=== PATIENT | male | born 1975 | race Caucasian/White ===

== ENCOUNTER 2023-10-28 02:16 | Inpatient (IN) | payer OTHER ==
[2023-10-28 02:39] LABS: #Eosinphils 0.1 thou/uL (0.0-0.7); #Monocytes 1.2 thou/uL (0.11-0.59); #Neutrophils 15.2 thou/uL (1.40-6.50); %Basophils 0.2 % (0.0-1.0); %Eosinophils 0.6 % (0.0-10.0); %Lymphocytes 7.4 % (21.0-51.0); %Monocytes 6.6 % (0.0-10.0); %Neutrophils 84.5 % (42.0-75.0); Hematocrit 34.9 % (42.0-52.0); Hemoglobin 11.2 g/dL (14.0-18.0); Mean Corpuscular HGB CONC 32.1 g/dL (32.0-36.0); Mean Corpuscular Hemoglobin 22.9 pg (27.0-31.0); Mean Corpuscular Volume 71.4 fl (78.0-98.0); Mean Platelet Volume 9.8 fL (7.4-10.4); Platelet Count 272 10x3/uL (130-400); RBC Distribution Width 14.7 % (11.5-14.5); Red Blood Cell (RBC) Count 4.89 mill/uL (4.70-6.10); White Blood Cell (WBC) Count 17.9 10x3/uL (4.8-10.8)
[2023-10-28 03:00] LABS: Critical Call Chem-Lactate NUR.NKE@0259
[2023-10-28 03:02] LABS: Acetaminophen Less than 10 mcg/mL (10.0-30.0); Alcohol 263.7 mg/dL (Less than 10); Salicylate Less than 8.0 mg/dL (15.0-30.0)
[2023-10-28 03:04] LABS: INR-International Normal Ratio 1.2; Prothrombin Time 15.8 sec (12.0-14.7)
[2023-10-28 03:05] LABS: PTT 34.5 sec (22.9-36.1)
[2023-10-28 03:08] LABS: ALT (SGPT) 229 U/L (8-55); AST (SGOT) 393 U/L (5-34); Albumin 3.8 g/dL (3.5-5.0); Alkaline Phosphatase 45 U/L (40-110); Anion Gap 20 mmol/L (10-20); BUN (Urea Nitrogen) 16 mg/dL (8.9-20.6); Bilirubin, Total 0.5 mg/dL (0.2-1.2); Calc. Creatinine Clearance 0 mL/min (70-130); Carbon Dioxide 18 mmol/L (22-29); Chloride 102 mmol/L (98-107); Estimated GFR 48; Globulin 2.8 g/dL (2.4-3.5); Glucose 197 mg/dL (70-105); Potassium 3.7 mmol/L (3.5-5.1); Protein, Total 6.6 g/dL (6.0-8.3); Sodium 136 mmol/L (136-145)
[2023-10-28 03:12] LABS: Troponin I Less than 0.010 ng/mL (< 0.028)
[2023-10-28 03:14] LABS: Anisocytosis SLIGHT = 6-15 cells (100X) (0-5/hpf)
[2023-10-28] MEDS ORDERED: Piperacillin/Tazobactam 4.5 GM VIAL ONE (03:22)
[2023-10-28] MEDS ORDERED: Sodium Chloride 0.9% 100 ML ONE (03:22)
[2023-10-28] MEDS ORDERED: Vancomycin 1 GM/200 ML (FROZEN) BAG ONE (03:22)
[2023-10-28] MEDS ORDERED: Morphine 2 MG/ML VIAL SLOW IVP PRN (03:39)
[2023-10-28] MEDS ORDERED: Ondansetron PF 4 MG/2 ML Vial IVP PRN (03:39)
[2023-10-28] MEDS ORDERED: Acetaminophen 325 MG TAB PO SCH (03:45)
[2023-10-28] MEDS ORDERED: Boostrix 0.5 ML (Tdap) VIAL (>/=7 yrs of age) ONE (03:51)
[2023-10-28 04:41] LABS: Bacteria/HPF None Seen HPF (None Seen); Bilirubin Negative (Negative); Blood, Urine 2+ (Negative); CAUTI Indications for Culture Alt mental st,lethar; Clarity Clear (Clear); Glucose, Urine (Dipstick) 300 mg/dL (Negative); Ketone, Urine Negative (Negative); Leukocyte Negative Leu/uL (Negative); Nitrite Negative (Negative); Protein, Urine (Dipstick) 10 mg/dL (Neg-Trace); RBC/HPF 0-3 HPF (0-3); Specific Gravity, Urine 1.014 (1.002-1.036); Squamous Epithelial None Seen HPF (0-3); Urobilinogen Normal mg/dL (Less than 2); WBC/HPF 0-3 HPF (0-3)
[2023-10-28 04:45] LABS: Urine Culture Reflex No No
[2023-10-28 04:46] LABS: Amphetamine Not Detected (NotDetected); Barbiturates Screen Not Detected (NotDetected); Benzodiazepine Screen Not Detected (NotDetected); Cocaine Metabolite Screen Not Detected (NotDetected); Methadone Not Detected (NotDetected); Methamphetamine Not Detected (NotDetected); Opiate Screen Not Detected (NotDetected); Oxycodone Screen Not Detected (NotDetected); Phencyclidine (PCP) Not Detected (NotDetected); THC/Cannabinoid Screen Not Detected (NotDetected); Tricyclic Screen Not Detected (NotDetected)
[2023-10-28 05:04] VITALS: BMI 39.2
[2023-10-28 05:42] LABS: Lactic Acid 3.5 mmol/L (0.5-2.2)
[2023-10-28] MEDS: Sodium Chloride 0.9% 1,000 ML IV SCH ×2 (06:18→08:56)
[2023-10-28] MEDS: Oxazepam 10 MG CAP PO SCH ×2 (06:19→11:55)
[2023-10-28] MEDS: Acetaminophen 500 MG TAB PO SCH ×2 (08:54→14:55)
[2023-10-28] MEDS ORDERED: Iopamidol 370 76% 100 ML VIAL ONE (08:58)
[2023-10-28] MEDS ORDERED: Polyethylene Glycol 3350 17 GM Packet PO SCH (09:00)
[2023-10-28] MEDS ORDERED: Famotidine/PF 20 mg/2ml Vial SLOW IVP SCH (09:00)
[2023-10-28] MEDS ORDERED: Senokot S 8.6-50 MG TAB PO SCH (09:00)
[2023-10-28] MEDS ORDERED: Acetaminophen 500 MG TAB PO SCH (09:00)
[2023-10-28] MEDS ORDERED: Thiamine 100 MG TAB PO SCH (09:00)
[2023-10-28] MEDS ORDERED: Gabapentin 100 MG CAP PO SCH (09:00)
[2023-10-28] MEDS ORDERED: Folic Acid 1 MG TAB PO SCH (09:00)
[2023-10-28] MEDS ORDERED: FLU VACC QS2023-24(6MOS UP)/PF 60 MCG/0.5 ML SYRINGE IM ONE (09:00)
[2023-10-28 11:09] LABS: Anion Gap 15 mmol/L (10-20); BUN (Urea Nitrogen) 12 mg/dL (8.9-20.6); Calc. Creatinine Clearance 139 mL/min (70-130); Calcium 7.6 mg/dL (7.8-10.44); Carbon Dioxide 16 mmol/L (22-29); Chloride 109 mmol/L (98-107); Estimated GFR 79; Glucose 138 mg/dL (70-105); Potassium 3.4 mmol/L (3.5-5.1); Sodium 137 mmol/L (136-145)
[2023-10-28] MEDS ORDERED: HYDROcodone/Acetaminophen 7.5/325 mg Tablet PO PRN (11:37)
[2023-10-28 13:02] VITALS: BP 121/69; TEMP 98.3
[2023-10-28] MEDS ORDERED: Gabapentin 300 MG CAP PO SCH (15:00)
== END 2023-10-28 15:13 | disposition home or self-care (01) | DRG 184 ==
LOC: ERS 02:16 → SURG A 03:40 → OBSVTOIN 09:39
PROVIDERS: ADMIT Specialist; ATTEND Specialist
DX: S22.42XA Multiple fractures of ribs, left side, initial encounter for closed fracture (principal); E87.20 Acidosis, unspecified; N17.9 Acute kidney failure, unspecified; J90 Pleural effusion, not elsewhere classified; E03.9 Hypothyroidism, unspecified; R40.2413 Glasgow coma scale score 13-15, at hospital admission; F17.210 Nicotine dependence, cigarettes, uncomplicated; F10.129 Alcohol abuse with intoxication, unspecified; N18.9 Chronic kidney disease, unspecified; I12.9 Hypertensive chronic kidney disease with stage 1 through stage 4 chronic kidney disease, or unspecified chronic kidney disease; E11.22 Type 2 diabetes mellitus with diabetic chronic kidney disease; D72.829 Elevated white blood cell count, unspecified; V89.2XXA Person injured in unspecified motor-vehicle accident, traffic, initial encounter; Y92.89 Other specified places as the place of occurrence of the external cause; Z98.890 Other specified postprocedural states
CPT/HCPCS: 36415; 36416; 36430; 70450; 70486; 71045; 71260; 72125; 74177; 80053; 80306; 80307; 81001; 83605; 84484; 85025; 85610; 85730; 86850; 86900; 86901; 87040; 90471; 90715; 93005; 96361; 96365; 96368; 99292; G0390; J2272; J2543; J3370-JW; J3490; J7050; Q9967; S0028